=== PATIENT | male | born 1990 | race Caucasian/White ===

== ENCOUNTER 2018-10-29 13:13 | Emergency (ER) | payer OTHER ==
[2018-10-29 13:18] VITALS: RESP 16; TEMP 97.9
--- NOTE | 2018-10-29 13:46 | ED ---
Overdose HPI - General Chief Complaint: Overdose Stated Complaint: Overdose Time Seen by Provider: 10/29/18 13:19 Source: EMS, RN notes reviewed, old records reviewed Mode of arrival: EMS Limitations: no limitations - History of Present Illness Initial Comments: This is a 28-year-old male the ER for evaluation. Patient presents with overdose, history of overdose, heroin overdose no other drugs or alcohol today. Patient's mom is at bedside, patient states he feels better currently after giving Narcan. Symptoms of been fine since arrival in emergency room. Patient is without complaints not homicidal or suicidal. MD Complaint: accidental overdose (Patient's drug use at this time was recreational) -: minutes(s) How Overdose Was Discovered: family/friend present at time Context: Intentional Overdose: drug/ETOH problems Context: Accidental Overdose: wanted to get high Treatments Prior to Arrival: narcan - Related Data Allergies Allergy/AdvReac Type Severity Reaction Status Date / Time amoxicillin Allergy Rash/Hives Verified 10/29/18 13:18 Review of Systems ROS Statement: Those systems with pertinent positive or pertinent negative responses have been documented in the HPI. ROS Other: All systems not noted in ROS Statement are negative. Past Medical History Past Medical History: No Reported History History of Any Multi-Drug Resistant Organisms: None Reported Past Surgical History: Orthopedic Surgery Past Psychological History: Anxiety, Depression Smoking Status: Current every day smoker Past Alcohol Use History: None Reported Past Drug Use History: Heroin, Opiates General Exam Limitations: no limitations General appearance: alert, in no apparent distress Head exam: Present: atraumatic, normocephalic, normal inspection Eye exam: Present: normal appearance, PERRL, EOMI. Absent: scleral icterus, conjunctival injection, periorbital swelling ENT exam: Present: normal exam, mucous membranes moist Neck exam: Present: normal inspection. Absent: tenderness, meningismus, lymphadenopathy Respiratory exam: Present: normal lung sounds bilaterally. Absent: respiratory distress, wheezes, rales, rhonchi, stridor Cardiovascular Exam: Present: regular rate, normal rhythm, normal heart sounds. Absent: systolic murmur, diastolic murmur, rubs, gallop, clicks GI/Abdominal exam: Present: soft, normal bowel sounds. Absent: distended, tenderness, guarding, rebound, rigid Extremities exam: Present: normal inspection, full ROM, normal capillary refill. Absent: tenderness, pedal edema, joint swelling, calf tenderness Back exam: Present: normal inspection Neurological exam: Present: alert, oriented X3, CN II-XII intact Psychiatric exam: Present: normal affect, normal mood Skin exam: Present: warm, dry, intact, normal color. Absent: rash Course Vital Signs 10/29/18 13:15 Temperature 97.9 F Pulse Rate 84 Respiratory 16 Rate Blood Pressure 125/72 O2 Sat by Pulse 99 Oximetry - Reevaluation(s) Reevaluation #1: 10/29/18 13:45 Medical records reviewed Reevaluation #2: 10/29/18 13:45 Spoke with patient at length regarding significance of overdose requiring Narcan, increased risk of within the next year. 10% Medical Decision Making - Medical Decision Making 28 male the ER for evaluation heroin overdose history of heroin overdose and drug abuse. Not homicidal or suicidal, that bedside will take patient home Disposition Clinical Impression: Drug overdose, Poisoning by opiate or related narcotic Disposition: HOME SELF-CARE Condition: Fair Instructions (If sedation given, give patient instructions): Prescription Opioid Overdose (ED), Narcotic Use Disorder (ED) Is patient prescribed a controlled substance at d/c from ED?: No Referrals: None,Stated [Primary Care Provider] - 1-2 days
[2018-10-29 14:11] VITALS: BP 121/61; PULSE 61
[2018-10-29 14:12] LABS: Amphetamine Screen,Urine Not Detected (NotDetected); Barbiturate Screen,Urine Not Detected (NotDetected); Benzodiazepines Screen,Urine Not Detected (NotDetected); Cocaine Screen,Urine Detected (NotDetected); Methadone Screen, Urine Not Detected (NotDetected); Opiate Screen,Urine Not Detected (NotDetected); Oxycodone Screen, Urine Not Detected (NotDetected); Phencyclidine Screen,Urine Not Detected (NotDetected); Tricyclic Antidepressant,Urine Not Detected (NotDetected); Urn Cannabinoid Scrn Detected (NotDetected)
== END 2018-10-29 14:10 | disposition home or self-care (01) ==
LOC: EC 13:13
DX: T40.1X1A Poisoning by heroin, accidental (unintentional), initial encounter (principal); F17.200 Nicotine dependence, unspecified, uncomplicated; Z88.0 Allergy status to penicillin
CPT/HCPCS: 80306; 99284